=== PATIENT | female | born 2005 | race Caucasian/White ===

== ENCOUNTER 2024-02-25 10:14 | Outpatient (CLI) | payer BC, SELFPAY | END 2024-02-25 10:15 | disposition home or self-care (01) | LOC: NFLDREF 10:16 | PROVIDERS: PCP Family Medicine; Visit Provider Physician Assistant | DX: L74.519 Primary focal hyperhidrosis, unspecified (principal); Z13.29 Encounter for screening for other suspected endocrine disorder | CPT/HCPCS: 84443 ==